=== PATIENT | male | born 1960 | race Caucasian/White ===

== ENCOUNTER 2023-05-17 06:31 | Day surgery (SDC) | payer OTHER ==
[~2023-05-17 06:31] MED LIST: Lactated Ringers 1,000 ML IV SCH; Sodium Chloride 0.9% 10 ML Syringe FLUSH PRN
[2023-05-17] MEDS ORDERED: Propofol 200 MG/20 ML SDV IV ONE (06:32)
[2023-05-17] MEDS ORDERED: Phenylephrine 0.5% Nasal Spray 15 ML Bot NAS ONE (06:32)
[2023-05-17] MEDS ORDERED: Simethicone Drops 40 MG/0.6 ML 30 ML Bottle ONE (07:17)
[2023-05-17 09:59] VITALS: BP 103/75; PULSE 57
== END 2023-05-17 08:54 | disposition home or self-care (01) ==
LOC: FB.SDS 06:31
PROVIDERS: ATTEND Surgery
DX: Z12.11 Encounter for screening for malignant neoplasm of colon (principal); D12.9 Benign neoplasm of anus and anal canal; K57.30 Diverticulosis of large intestine without perforation or abscess without bleeding; R97.20 Elevated prostate specific antigen [PSA]; E78.00 Pure hypercholesterolemia, unspecified; Z87.891 Personal history of nicotine dependence; Z86.010 Personal history of colon polyps; Z79.899 Other long term (current) drug therapy
CPT/HCPCS: 00811; 45385; 88305; A9270; J2704; J7120

== ENCOUNTER 2024-09-11 06:18 | Day surgery (SDC) | payer OTHER ==
[~2024-09-11 06:18] MED LIST changes: -Lactated Ringers 1,000 ML IV SCH
[2024-09-11] MEDS ORDERED: Midazolam 1 MG/ML 2 ML SDV IV ONE (06:19)
[2024-09-11] MEDS ORDERED: fentaNYL 100 MCG/2 ML SDV IV ONE (06:19)
[2024-09-11 06:57] VITALS: BP 141/88; PULSE 58
[2024-09-11] MEDS: Lactated Ringers 1,000 ML IV SCH (07:42)
[2024-09-11] MEDS: ceFAZolin 2 GM Vial IVPUSH ONE (07:43)
[2024-09-11] MEDS: Lidocaine 1% with EPINEPHrine 1:100,000 20 ML MDV INJECT ONE (08:10)
[2024-09-11] MEDS: Sodium Bicarbonate 8.4% 50 MEQ/50 ML Syringe ONE (08:10)
[2024-09-11] MEDS: Bupivacaine 0.5% 30 ML SDV INJECT ONE (08:10)
== END 2024-09-11 10:59 | disposition home or self-care (01) ==
LOC: FB.SDS 06:18
PROVIDERS: ATTEND Surgery
DX: D17.1 Benign lipomatous neoplasm of skin and subcutaneous tissue of trunk (principal); E78.5 Hyperlipidemia, unspecified; Z79.899 Other long term (current) drug therapy; F17.210 Nicotine dependence, cigarettes, uncomplicated
CPT/HCPCS: 00300; 88304; J0665; J0690; J2250; J3010; J7120